=== PATIENT | female | born 1975 | race Caucasian/White ===

== ENCOUNTER 2021-12-01 12:47 | Emergency (ER) | payer BC ==
[~2021-12-01] VITALS: Ht 160 cm; Wt 59.9 kg
[2021-12-01 14:18] LABS: ABSOLUTE BASOPHILS 0.1 thou/uL (0.0-0.2); ABSOLUTE EOSINOPHILS 0.2 thou/uL (0.0-0.7); ABSOLUTE LYMPHOCYTES 2.4 thou/uL (0.8-5.3); ABSOLUTE MONOCYTES 0.7 thou/uL (0.0-1.2); ABSOLUTE NEUTROPHILS 4.6 thou/uL (1.6-8.1); BASOPHILS 0.9 %; EOSINOPHILS 2.9 %; HEMATOCRIT 41.8 % (37.0-47.0); HEMOGLOBIN 14.2 gm/dL (12.0-15.0); LYMPHOCYTES 30.7 %; MCH 31.7 pg (26.0-34.0); MCV 93.1 fL (80.0-100.0); MONOCYTES 8.5 %; MPV 8.1 fl. (7.2-11.1); NUCLEATED RBCS 0 /100WBC; PLATELET COUNT* 308 thou/uL (150-400); RBC 4.49 mil/uL (4.20-5.00); RDW-CV 12.6 % (10.5-14.5)
[2021-12-01 14:27] LABS: CALCIUM 8.5 mg/dL (8.5-10.1); CREATININE 0.8 mg/dL (0.6-1.3)
[2021-12-01 14:32] LABS: ALBUMIN 3.7 g/dL (3.4-5.0); TOTAL BILIRUBIN 0.2 mg/dL (<0.1-1.0); TOTAL PROTEIN 7.3 g/dL (6.4-8.2)
--- NOTE | 2021-12-01 14:38 | EKG ---
[place] [address] ELECTROCARDIOGRAM REPORT Name: LEONEL STANLEY Room: [facility]#: [id number] Admission: 12/01/21 Attend Phys: Discharge: Date of : 75 Date of Service: 12/01/21 1413 Report #: [id number] THIS REPORT FOR: //name// [facility] ED Test Date: 2021-12-01 Test Time: 14:13:41 Pat Name: LEONEL STANLEY Department: Room: Gender: Editorial Assistant: [facility] : 1975 Requested By: Shila Jernigan Order Number: [id number] MD: Loi Go Measurements Intervals [place] Rate: 87 P: 47 [place]: 149 QRS: 4 QRSD: 84 T: 34 QT: 353 QTc: 425 Interpretive Statements Sinus rhythm 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 12/01/21 1438 D: 01/1412 141 Loi Go MD, FACC /EPI
[2021-12-01 15:41] LABS: URINE BILIRUBIN NEGATIVE (Negative); URINE BLOOD NEGATIVE (Negative); URINE CLARITY CLEAR; URINE COLOR YELLOW; URINE GLUCOSE-RANDOM NEGATIVE (Negative); URINE KETONES NEGATIVE (Negative); URINE LEUKOCYTES-REFLEX NEGATIVE (Negative); URINE NITRITE-REFLEX NEGATIVE (Negative); URINE PROTEIN NEGATIVE (Negative); URINE UROBILINOGEN 0.2 E.U./dl (0.2-1.0)
[2021-12-01] MEDS ORDERED: VENTOLIN HFA 1818 GM INH (16:09)
[2021-12-01] MEDS ORDERED: ZOFRAN ODT4 MG PO (16:09)
[2021-12-01 16:20] VITALS: BP 99/58
== END 2021-12-01 16:21 | disposition home or self-care (01) ==
LOC: M.ERS 12:47
PROVIDERS: Nurse Practitioner Family
DX: U07.1 COVID-19 (principal); R53.1 Weakness; F17.210 Nicotine dependence, cigarettes, uncomplicated; Z88.0 Allergy status to penicillin

== ENCOUNTER 2021-12-13 13:15 | Emergency (ER) | payer BC ==
[~2021-12-13] VITALS: Ht 160 cm; Wt 59.9 kg
[~2021-12-13 13:15] MED LIST: VENTOLIN HFA 1818 GM INH; ZOFRAN ODT4 MG PO
[2021-12-13 15:20] VITALS: BP 108/70
== END 2021-12-13 15:21 | disposition home or self-care (01) ==
LOC: M.ERS 13:15
DX: S93.602A Unspecified sprain of left foot, initial encounter (principal); F17.210 Nicotine dependence, cigarettes, uncomplicated; Z79.899 Other long term (current) drug therapy; Z88.0 Allergy status to penicillin; W10.8XXA Fall (on) (from) other stairs and steps, initial encounter; Y93.89 Activity, other specified; Y92.89 Other specified places as the place of occurrence of the external cause; Y99.8 Other external cause status